=== PATIENT | male | born 1995 ===

== ENCOUNTER 2021-07-28 03:03 | Outpatient (CLI) | payer SELFPAY | END 2021-07-28 03:04 | disposition EMS.NT | LOC: EMS 03:03 | DX: R00.0 Tachycardia, unspecified (principal) ==

== ENCOUNTER 2023-01-05 06:02 | Outpatient (CLI) | payer OTHER | END 2023-01-05 23:59 | disposition short-term general hospital (02) | LOC: EMS 06:02 | DX: I47.10 Supraventricular tachycardia, unspecified (principal) | CPT/HCPCS: A0425; A0427 ==